=== PATIENT | male | born 1960 | race Caucasian/White ===

== ENCOUNTER → 2017-04-01 | Outpatient (CLI) | payer OTHER | LOC: BMCIMAGING 10:01 | PROVIDERS: ATTEND Family Medicine | DX: S82.301A Unspecified fracture of lower end of right tibia, initial encounter for closed fracture (principal) ==

== ENCOUNTER → 2017-04-28 | Outpatient (CLI) | payer OTHER | LOC: BMCIMAGING 13:29 → EDSTATUS 15:04 | PROVIDERS: ATTEND Podiatrist Foot & Ankle Surgery | DX: S82.201D Unspecified fracture of shaft of right tibia, subsequent encounter for closed fracture with routine healing (principal) ==